=== PATIENT | male | born 1970 | race Caucasian/White ===

== ENCOUNTER 2017-03-18 08:02 | Day surgery (SDC) | payer BC ==
[~2017-03-18] VITALS: Ht 160 cm; Wt 83.2 kg
[2017-03-18] VITALS (13 sets, daily range): BP systolic 90–127; BP diastolic 61–76; PULSE 56–94; RESP 15–31; Ht 160 cm; Wt 83.2 kg
[~2017-03-18 08:02] MED LIST: ASPI-716 PO; ATOR20TA38 PO; CILO50TA PO; ISOS30TA5 PO; METO-429 PO; OMEP40CA6 PO; RANO500T2 PO
[2017-03-18] MEDS ORDERED: METO25TA7 PO (08:28)
[2017-03-18 09:26] LABS: ADD SCAN DIFF NO
--- NOTE | 2017-03-18 09:41 | RADRPT ---
PROCEDURE: XR Chest. CLINICAL INDICATION: Preop for left heart catheterization. TECHNIQUE: Single frontal view of the chest was obtained. COMPARISON: Chest x-ray 06/13/2015 08:58 a.m.. FINDINGS: There is a suboptimal inspiration with elevation of the diaphragm and increased interstitial promine nce in the bases of the lungs. The bony elements are normal. The heart, cardiomediastinal silhouet te and hilar structures are normal. The pulmonary vasculature is normal. There is a left-sided aort a. The lungs are clear. The costophrenic angles are normal. IMPRESSION: 1. Compressive atelectasis in the bases of the lungs attributed to poor inspiration. 2. Stable chest compared to 06/13/2015. RPTAT:AAJJ Physician Erich Date Time Electronically viewed and signed by Jesus Sam Physician on 03/18/2017 09:40 NILS/
[2017-03-18 09:42] LABS: BASOPHILS % 0.5 % (0.0-2.0); EOSINOPHILS # 0.2 10^3/ul (0.0-0.5); EOSINOPHILS % 2.9 % (0.0-7.0); HEMATOCRIT 41.9 % (42.0-52.0); HEMOGLOBIN 13.9 g/dl (14.0-18.0); LYMPHOCYTES # 1.5 10^3/ul (0.8-2.9); LYMPHOCYTES % 26.7 % (15.0-51.0); MEAN CORPUSCULAR HEMOGLOBIN 28.8 pg (29.0-33.0); MEAN CORPUSCULAR HGB CONC 33.2 g/dl (32.0-37.0); MEAN CORPUSCULAR VOLUME 86.9 fl (82.0-101.0); MEAN PLATELET VOLUME 10.9 fl (7.4-10.4); MONOCYTE # 0.4 10^3/ul (0.3-0.9); MONOCYTES % 7.7 % (0.0-11.0); NEUTROPHIL # 3.5 10^3/ul (1.6-7.5); NEUTROPHILS % 61.8 % (39.0-77.0); PLATELET COUNT 173 10^3/UL (140-415); RED BLOOD COUNT 4.82 10^6/ul (4.70-6.10); RED CELL DISTRIBUTION WIDTH 12.4 % (11.5-14.5); WHITE BLOOD COUNT 5.6 10^3/ul (4.8-10.8)
[2017-03-18 09:48] LABS: INR 1.04; PARTIAL THROMBOPLASTIN TIME 30.8 Sec (25.0-35.0); PROTIME 13.6 Sec (12.2-14.2); PT RATIO 1.1
[2017-03-18 09:51] LABS: CALCIUM 9.5 mg/dl (8.4-10.2); CREATININE 0.7 mg/dl (0.61-1.24); POTASSIUM 4.1 mmol/L (3.5-5.1)
[2017-03-18] MEDS ORDERED: LIDOCAINE 1% (MDV) 20 ML INJ ONE (10:40)
[2017-03-18] MEDS ORDERED: IODIXANOL LOCM 100 ML BTL ONE (10:40)
[2017-03-18] MEDS ORDERED: NITROGLYCERIN (IC) 100 MCG/ML INJ ONE (10:40)
[2017-03-18] MEDS ORDERED: MIDAZOLAM 1 MG/ML 2 ML INJ ONE (10:40)
[2017-03-18] MEDS ORDERED: HEPARIN 1000 UNITS/ML 10 ML INJ ONE (10:40)
[2017-03-18] MEDS ORDERED: VERAPAMIL 5 MG INJ ONE (10:40)
[2017-03-18] MEDS ORDERED: FENTAnyl 50 MCG/ML VIAL ONE (10:40)
[2017-03-18] MEDS ORDERED: SOD CHLORIDE 0.9% 1,000 ML IV SCH (11:25)
[2017-03-18] MEDS ORDERED: ONDANSETRON 4 MG INJ IV PRN (11:30)
[2017-03-18] MEDS ORDERED: AL HYDROX/MG HYDROX/SIMETH 30 ML CUP PO PRN (11:30)
[2017-03-18] MEDS ORDERED: ACETAMINOPHEN 325 MG TAB PO PRN (11:30)
--- NOTE | 2017-03-18 11:39 | OPR ---
Date/Time of Note Date/Time of Note DATE: 03/18/17 TIME: 11:31 Operative Report Procedure Date: Mar 18, 2017 Preoperative Diagnosis chest pain/abnormal MPI Postoperative Diagnosis Non-obstructive cad Operation Performed 1.Left heat catheterization 2.Coronary angiography Surgeon: JOANIE HERNANDEZ Anesthesia: other (modersate concious sedation) Estimated Blood Loss: minimal Complications: None Pt Condition Post Procedure: stable Disposition: PACU Indications Chest pain, abnormal MPI Operative\Procedure Findings 30-40% mid LAD with mild bridging associated 20% mid RCA LVEDP-13 LVEF 60% Procedure Description Diagnotic 6F FL 3.5 FR 4, Pigtail catheter JOANIE HERNANDEZ Mar 18, 2017 11:39
[2017-03-18] MEDS ORDERED: SOD CHLORIDE 0.9% 500 ML ONE (12:10)
--- NOTE | 2017-03-18 16:38 | RADRPT ---
Vent Rate: 68 bpm RR Interval: 0 msec SC Interval: 152 msec QRS Duration: 88 msec QT Interval: 408 msec QTC Interval: 433 msec P-R-T Barney: 57 - 48 - 50 degrees Normal sinus rhythm Normal ECG Electronically Signed By: Jaya Antony [id number]
== END 2017-03-18 13:55 | disposition left against medical advice (07) ==
LOC: SDS 08:02
PROVIDERS: ATTEND Internal Medicine
DX: I25.10 Atherosclerotic heart disease of native coronary artery without angina pectoris (principal); R94.39 Abnormal result of other cardiovascular function study; I10 Essential (primary) hypertension
CPT/HCPCS: 71010; 80048; 80061; 85025; 85610; 85730; 93005; 93458; C1769; C1887; J1644; J2250; J3010; J7040; Q9967; Z7610